=== PATIENT | male | born 1975 | race African-American/Black ===

== ENCOUNTER 2021-04-03 21:18 | Emergency (ER) | payer BC, SELFPAY ==
[2021-04-03 21:20] VITALS: BP 160/100; PULSE 84; RESP 15; TEMP 36.5; O2SAT 97; BMI 31.9
[2021-04-03] MEDS: HYDROcodone Bitartrate/Apap 5/325 Tablet PO (21:59)
--- NOTE | 2021-04-03 22:03 | RAD_ITS ---
STUDY: X-RAY - RIGHT KNEE REASON FOR EXAM: Male, 45 years old. Nontraumatic pain/swelling TECHNIQUE: 3 view(s) of the knee. COMPARISON: None. FINDINGS: Normal visualized distal femur. Normal visualized proximal tibia and fibula. Normal proximal tibiofibular articulation. There is no demonstrated fracture. Normal medial femorotibial compartment. Normal lateral femorotibial compartment. Normal patellofemoral articulation. There is no demonstrated joint effusion. The soft tissue structures are unremarkable. RAD/Knee 3 Views IMPRESSION: Small joint effusion Electronically Signed: Earl Paula MD at 22:54 EDT , Service support ,
[2021-04-03 22:11] LABS: Absolute Lymphocyte Count 2.33 X10^3/uL (0.83-4.51); Absolute Neutrophil Count 6.8 X10^3/uL (2.0-7.7); Basophil# 0.04 X10^3/uL; Basophil% 0.4 % (0-1); Eosinophil# 0.38 X10^3/uL; Eosinophils% 3.6 % (0-5); Hematocrit 44.5 % (40-54); Hemoglobin 14.8 g/dL (13.0-16.5); Lymphocyte # 2.33 X10^3/ul (0.83-4.51); Lymphocyte % 22.3 % (19-41); Mean Corp Hgb Conc 33.3 g/dL (32-36); Mean Corpuscular Hgb 29.7 pg (27.0-32.0); Mean Corpuscular Volume 89.2 fL (80-94); Mean Platelet Vol. 8.7 fl (6.2-12.0); Monocyte# 0.87 X10^3/uL; Monocyte% 8.3 % (0-10); NRBC Flagged by Analyzer 0 % (0-5); Neutrophil # 6.81 X10^3/uL (2.7-7.7); Platelet Count 223 K/mm3 (150-450); RBC Distribution Width CV 14.4 % (11.6-14.6); RBC Distribution Width SD 46.6 fl (35.1-43.9); Red Blood Count 4.99 M/mm3 (4.6-6.2); White Blood Count 10.5 K/mm3 (4.4-11.0)
[2021-04-03 22:19] LABS: Erythrocyte Sedimentation Rate 7 mm/hr (0-20)
--- NOTE | 2021-04-03 22:25 | EX.ED.DYSGE1 ---
HPI History of Present Illness Chief Complaint: Lower Extremity Injury Informant: patient Narrative Narrative: Patient is a 45-year-old male who presents to the emergency department for right knee pain and swelling. It started yesterday. He denies any trauma to the knee. Denies any systemic symptoms. No chest pain or shortness of breath. No fevers or chills. He denies having this pain before in the past. Patient was started on Xarelto around 5 weeks ago for a DVT in that leg. He is denying any calf pain at this time. No weakness or loss of sensation going down the leg. He has been able to ambulate on it. Patient denies any other medical issues. He denies any IV drug abuse. No other joint is bothering him. [facility] Medical History (Updated 04/03/21 @ 23:[address] Jose Eduardo Weeks DO) DVT (deep venous thrombosis) Gout Home Medications apixaban [Eliquis DVT-PE Treat 30D Start] 5 mg PO BID 04/03/21 [History Last Taken Unknown] hydrocodone-acetaminophen 1 tab PO Q6H PRN PRN 3 Days #10 tablet 04/03/21 [Rx Last Taken Unknown] Allergy/AdvReac Type Severity Reaction Status Date / Time No Known Allergies Allergy Verified 04/03/21 21:25 Social History Smoking Status: Current every day smoker tobacco type: cigarettes ROS ROS ED Constitutional Constitutional ED: Denies chills or fever(s) Eyes Eyes: Denies change in vision Cardiovascular Cardiovascular: Denies chest pain Respiratory/Chest Respiratory/Chest: Denies cough, dyspnea or dyspnea on exertion Gastrointestinal Gastrointestinal: Denies abdominal pain, nausea or vomiting Genitourinary Genitourinary ED: Denies dysuria, hematuria or urinary frequency Musculoskeletal Musculoskeletal: Reports arthralgias; Denies back pain or neck pain Integumentary Denies rash Neurologic Neurologic: Denies dizziness, headache(s) or weakness EXAM Physical Exam Const Vital Signs: 04/03/21 21:20 Temperature 97.7 F L Temperature Source Temporal Pulse Rate 84 Respiratory Rate 15 Blood Pressure 160/100 H Blood Pressure Mean 120 Pulse Ox 97 Oxygen Delivery Method Room Air Positive well nourished and well developed General Appearance ED: well developed and NAD HEENT Reports normocephalic, head/scalp atraumatic and moist mucous membranes Eyes PERRL and EOMs intact bilaterally Neck supple Chest Wall inspection of chest normal Resp normal respiratory effort and clear to auscultation bilaterally Auscultation: Negative for rales, rhonchi or wheezes Cardio regular rate, regular rhythm and no murmurs GI normal to inspection, nondistended, normoactive bowel sounds and non-tender Palpation: soft; Negative for guarding or rebound tenderness present Back/Spine no CVA tenderness Extremity Extremity Narrative: Right knee is mildly edematous. He is tender on the lateral aspect. No overlying skin changes. Neurovascular intact distal. Pain with movements. Range of motion is limited due to the pain. Neuro no sensory deficits noted Sensorium / Orientation: alert Motor Exam: strength 5/5 throughout Psych mental status grossly normal Skin no rashes or lesions noted MDM MDM MDM Narrative Medical decision making narrative: Patient presents the ED for nontraumatic right knee pain and swelling. Upon arrival to the ED is mildly hypertensive otherwise normal vital signs. He is currently on Xarelto for history of DVT. Will check x-ray as well as basic lab work. Patient has no risk factors for septic arthritis. Will check ESR, CRP and blood count. I do not think arthrocentesis can be performed given the fact he is on Xarelto. Could have small bleed into the knee space. Patient's lab work does not reveal a high white blood cell count. ESR and CRP are well within normal limits. X-ray did not show any fracture. There was a small effusion present. Will recommend symptomatic treatment with tori wrap, rest, ice and elevation. He is given pain medications to last through the weekend. He is given orthopedic surgery referral. Return precautions are reviewed including developing systemic symptoms, worsening swelling, overlying skin changes. He understands and is agreeable this plan. All questions were answered. Lab Data Labs: Laboratory Results - last 24 hr 04/03/21 04/03/21 22:05 22:05 WBC 10.5 RBC 4.99 Hgb 14.8 Hct 44.5 MCV 89.2 MCH 29.7 MCHC 33.3 RDW Std Deviation 46.6 H RDW Coeff of Sushila 14.4 Plt Count 223 MPV 8.7 Immature Gran % (Auto) 0.400 Neut % (Auto) 65.0 Lymph % (Auto) 22.3 [place] % (Auto) 8.3 Eos % (Auto) 3.6 Baso % (Auto) 0.4 Absolute Neuts (auto) 6.8 Absolute Lymphs (auto) 2.33 Nucleated RBC % 0 ESR 7 C-React Prot Ext Range < 2.90 Radiography Diagnostic Testing: Radiology Impression Knee X-Ray 04/03/21 22:03 IMPRESSION: Small joint effusion Electronically Signed: Earl Paula MD at 22:54 EDT , Service support , Discharge Plan Triage Chief Complaint: Lower Extremity Injury ED Provider: Jose Eduardo Weeks Dx/Rx/DC Orders Clinical Impression: Acute knee pain, Effusion of knee Instructions: ED Knee Effusion Prescriptions: New hydrocodone-acetaminophen 5-325 mg tablet 1 tab PO Q6H PRN PRN (Reason: Pain) 3 Days Qty: 10 RF: 0 No Action Eliquis DVT-PE Treat 30D Start 5 mg (74 tabs) tablets,dose pack 5 mg PO BID RF: 0 Primary Care Provider: Care Physician,No Primary Referrals: Jose Eduardo Estes DO [STAFF PHYSICIAN] - 1-2 Days if not improving Care Physician,No Primary [Primary Care Provider] - Disposition Disposition: Home, Self Care Discharge Date/Time: 04/03/21 23:21
[2021-04-03 22:32] LABS: CRP < 2.90 mg/L (0.0-3.0)
== END 2021-04-03 23:21 | disposition home or self-care (01) ==
PROVIDERS: Emergency Provider Emergency Medicine
DX: M25.461 Effusion, right knee (principal); F17.210 Nicotine dependence, cigarettes, uncomplicated; Z86.718 Personal history of other venous thrombosis and embolism; Z79.02 Long term (current) use of antithrombotics/antiplatelets
CPT/HCPCS: 36415; 73562; 85025; 85652; 86140; 99284

== ENCOUNTER → 2021-04-07 | Outpatient (CLI) | payer BC, SELFPAY ==
[2021-04-07 10:41] VITALS: BMI 31.6
[2021-04-07 12:57] LABS: Source- Body Fluid SYNOVIAL
[2021-04-07 12:59] LABS: Body Fluid QC Type(s) BF3
[2021-04-08 12:02] LABS: CRYSTALS, BODY FLUID REV
== END | disposition home or self-care (01) ==
LOC: LABSPEC 12:31
PROVIDERS: Referring Provider Orthopaedic Surgery; Visit Provider Orthopaedic Surgery
DX: M25.469 Effusion, unspecified knee (principal); M25.569 Pain in unspecified knee
CPT/HCPCS: 89060